=== PATIENT | male | born 1990 | race Two or more races ===

== ENCOUNTER 2018-07-25 00:09 | Emergency (ER) | payer OTHER ==
--- NOTE | 2018-07-25 00:21 | ER Report ---
History and Physical Time Seen By MD: 00:21 Hx. of Stated Complaint: patient states that he has had a fever for the past couple hours; patient also states around 2100 he started having chills even when dressed; patient states that before he started feeling ill he was at the gym HPI/ROS CHIEF COMPLAINT: fever, chills HISTORY OF PRESENT ILLNESS: This is a 27 year old male. He has had some fevers and chills tonight. Some stomach pain off and on for months now, and did have some tonight. Has had reflux in the past. Mild nausea, no vomiting. Had some difficulty breathing earlier tonight, but feels better now. Has history of some anxiety as well. No cough. No sore throat or runny nose. No diarrhea. No trouble with urination. Allergies: Coded Allergies: No Known Drug Allergies (Unverified , 07/25/18) Home Meds No Active Prescriptions or Reported Meds Reviewed Nurses Notes: Yes Hx Substance Use Disorder: No Constitutional Vital Sign - Last 24 Hours 07/25/18 07/25/18 07/25/18 07/25/18 00:11 00:13 00:30 01:02 Temp 97.8 Pulse 110 Resp 17 B/P (MAP) 132/96 (108) 132/96 122/97 (105) 124/87 (99) Pulse Ox 94 O2 Delivery Room Air 07/25/18 07/25/18 07/25/18 01:09 01:30 01:39 Pulse 101 109 B/P (MAP) 128/83 (98) Pulse Ox 93 93 Physical Exam General Appearance: The patient is alert. No acute distress. Eyes: Pupils are equal, round. No pallor, injection or icterus. ENT: Mucous membranes are moist. Normal oral mucosa. Posterior oropharynx is normal. Normal tympanic membranes and canals. Neck: Supple and non tender. No lymphadenopathy. Respiratory: Lungs are clear to auscultation. Cardiovascular: Regular rate and rhythm. No murmurs, gallops or rubs. Normal capillary refill. Gastrointestinal: Abdomen is soft and non tender. Nondistended. Normal active bowel sounds. Neurological: Alert and oriented x3. Skin: Warm and dry. No rashes. Musculoskeletal: Extremities are nontender. DIFFERENTIAL DIAGNOSIS: After history and physical exam, differential diagnosis was considered for a patient with fever and chills, some stomach upset that sounds like reflux. Medical Decision Making Data Points Result Diagram: 07/25/184907/25/1849 Laboratory Hematology Test 07/25/18 00:22 07/25/18 00:43 07/25/18 00:50 Influenza Virus Type A (PCR) Negative (NEGATIVE) Influenza Virus Type B (PCR) Negative (NEGATIVE) Urine Color Straw Urine Clarity Clear Urine pH 5.0 pH (4.8-9.5) Urine Specific [place] 1.009 Urine Protein Negative mg/dL (NEGATIVE) Urine Glucose (UA) Negative mg/dL (NEGATIVE) Urine Ketones Negative mg/dL (NEGATIVE) Urine Blood Moderate (NEGATIVE) Urine Nitrite Negative (NEGATIVE) Urine Bilirubin Negative (NEGATIVE) Urine Urobilinogen Negative mg/dL (0.2-1.9) Urine Leukocyte Esterase Negative (NEGATIVE) Urine RBC 2 /HPF (0-2/HPF) Urine WBC <1 /HPF (0-5/HPF) Urine Squamous Epithelial Cells None /LPF (</=FEW) Urine Bacteria Negative /HPF (NONE-FEW) Urine Mucus None /HPF (NONE-FEW) Red Blood Count 6.23 M/uL (4.00-5.60) Mean Corpuscular Volume 84.5 fL (80.0-96.0) Mean Corpuscular Hemoglobin 28.9 pg (26.0-33.0) Mean Corpuscular Hemoglobin Concent 34.2 g/dL (32.0-36.0) Red Cell Distribution Width 12.7 % (11.5-14.5) Mean Platelet Volume 8.3 fL (7.2-11.1) Neutrophils (%) (Auto) 78.1 % (39.4-72.5) Lymphocytes (%) (Auto) 9.9 % (17.6-49.6) Monocytes (%) (Auto) 10.9 % (4.1-12.4) Eosinophils (%) (Auto) 0.6 % (0.4-6.7) Basophils (%) (Auto) 0.5 % (0.3-1.4) Nucleated RBC Relative Count (auto) 0.2 /100WBC Neutrophils # (Auto) 7.3 K/uL (2.0-7.4) Lymphocytes # (Auto) 0.9 K/uL (1.3-3.6) Monocytes # (Auto) 1.0 K/uL (0.3-1.0) Eosinophils # (Auto) 0.1 K/uL (0.0-0.5) Basophils # (Auto) 0.0 K/uL (0.0-0.1) Nucleated RBC Absolute Count (auto) 0.01 K/uL Sodium Level 136 mmol/L (137-145) Potassium Level 3.5 mmol/L (3.5-5.0) Chloride Level 99 mmol/L (98-107) Carbon Dioxide Level 26 mmol/L (22-30) Blood Urea Nitrogen 15 mg/dl (9-21) Creatinine 0.90 mg/dl (0.66-1.25) Glomerular Filtration Rate Calc > 60.0 Random Glucose 114 mg/dl (75-110) Calcium Level 9.9 mg/dl (8.4-10.2) Total Bilirubin 0.6 mg/dl (0.2-1.3) Aspartate Amino Transf (AST/SGOT) 20 U/L (0-35) Alanine Aminotransferase (ALT/SGPT) 23 U/L (0-56) Alkaline Phosphatase 70 U/L (0-126) Total Protein 7.8 g/dl (6.3-8.2) Albumin 4.6 g/dl (3.5-5.0) Chemistry Test 07/25/18 00:22 07/25/18 00:43 07/25/18 00:50 Influenza Virus Type A (PCR) Negative (NEGATIVE) Influenza Virus Type B (PCR) Negative (NEGATIVE) Urine Color Straw Urine Clarity Clear Urine pH 5.0 pH (4.8-9.5) Urine Specific [place] 1.009 Urine Protein Negative mg/dL (NEGATIVE) Urine Glucose (UA) Negative mg/dL (NEGATIVE) Urine Ketones Negative mg/dL (NEGATIVE) Urine Blood Moderate (NEGATIVE) Urine Nitrite Negative (NEGATIVE) Urine Bilirubin Negative (NEGATIVE) Urine Urobilinogen Negative mg/dL (0.2-1.9) Urine Leukocyte Esterase Negative (NEGATIVE) Urine RBC 2 /HPF (0-2/HPF) Urine WBC <1 /HPF (0-5/HPF) Urine Squamous Epithelial Cells None /LPF (</=FEW) Urine Bacteria Negative /HPF (NONE-FEW) Urine Mucus None /HPF (NONE-FEW) White Blood Count 9.3 k/uL (4.5-11.0) Red Blood Count 6.23 M/uL (4.00-5.60) Hemoglobin 18.0 g/dL (14.0-18.0) Hematocrit 52.7 % (42.0-52.0) Mean Corpuscular Volume 84.5 fL (80.0-96.0) Mean Corpuscular Hemoglobin 28.9 pg (26.0-33.0) Mean Corpuscular Hemoglobin Concent 34.2 g/dL (32.0-36.0) Red Cell Distribution Width 12.7 % (11.5-14.5) Platelet Count 245 K/uL (150-450) Mean Platelet Volume 8.3 fL (7.2-11.1) Neutrophils (%) (Auto) 78.1 % (39.4-72.5) Lymphocytes (%) (Auto) 9.9 % (17.6-49.6) Monocytes (%) (Auto) 10.9 % (4.1-12.4) Eosinophils (%) (Auto) 0.6 % (0.4-6.7) Basophils (%) (Auto) 0.5 % (0.3-1.4) Nucleated RBC Relative Count (auto) 0.2 /100WBC Neutrophils # (Auto) 7.3 K/uL (2.0-7.4) Lymphocytes # (Auto) 0.9 K/uL (1.3-3.6) Monocytes # (Auto) 1.0 K/uL (0.3-1.0) Eosinophils # (Auto) 0.1 K/uL (0.0-0.5) Basophils # (Auto) 0.0 K/uL (0.0-0.1) Nucleated RBC Absolute Count (auto) 0.01 K/uL Glomerular Filtration Rate Calc > 60.0 Calcium Level 9.9 mg/dl (8.4-10.2) Total Bilirubin 0.6 mg/dl (0.2-1.3) Aspartate Amino Transf (AST/SGOT) 20 U/L (0-35) Alanine Aminotransferase (ALT/SGPT) 23 U/L (0-56) Alkaline Phosphatase 70 U/L (0-126) Total Protein 7.8 g/dl (6.3-8.2) Albumin 4.6 g/dl (3.5-5.0) Urinalysis Test 07/25/18 00:43 Urine Color Straw Urine Clarity Clear Urine pH 5.0 pH (4.8-9.5) Urine Specific [place] 1.009 Urine Protein Negative mg/dL (NEGATIVE) Urine Glucose (UA) Negative mg/dL (NEGATIVE) Urine Ketones Negative mg/dL (NEGATIVE) Urine Blood Moderate (NEGATIVE) Urine Nitrite Negative (NEGATIVE) Urine Bilirubin Negative (NEGATIVE) Urine Urobilinogen Negative mg/dL (0.2-1.9) Urine Leukocyte Esterase Negative (NEGATIVE) Urine RBC 2 /HPF (0-2/HPF) Urine WBC <1 /HPF (0-5/HPF) Urine Squamous Epithelial Cells None /LPF (</=FEW) Urine Bacteria Negative /HPF (NONE-FEW) Urine Mucus None /HPF (NONE-FEW) EKG/Imaging Imaging CHEST: Indication: Dyspnea and fever. Technique: Frontal and lateral views were obtained. Comparison: None available. Skeletal and soft tissue structures: Intact and unremarkable. Heart and mediastinum: Within normal limits. Lung [place]: Well-expanded and clear. No focal consolidation or volume loss. Pleural spaces: Unremarkable. Impression: No acute process. Report Dictated By: Dinesh Madrigal MD at 07/25/2018 1:39 AM ED Course/Re-evaluation ED Course Labs unremarkable. Reviewed with the patient that the fevers and chills likely due to virus, but could be response to GERD symptoms as well. See instructions below. Decision to Disposition Date: Jul 25, 2018 Decision to Disposition Time: 01:45 Depart Departure Latest Vital Signs Vital Signs Date Time Temp Pulse Resp B/P (MAP) Pulse Ox O2 Delivery O2 Flow Rate FiO2 07/25/18 01:39 109 93 07/25/18 01:30 128/83 (98) 07/25/18 00:13 97.8 17 Room Air Impression: Primary Impression: Upper respiratory infection Additional Impression: Acid reflux Condition: Improved Disposition: HOME OR SELF-CARE New Scripts No Active Prescriptions or Reported Meds Patient Instructions: Gastroesophageal Reflux Disease (ED) Additional Instructions: Your fever and chills tonight may have been caused by the stomach problem/stomach acid, or it could be due to a viral infection. If it is a viral infection, you may have repeated fevers or chills for several days. You can take over the counter Tylenol (Acetaminophen) or Ibuprofen for this. For the stomach acid, try taking Zantac or Pepcid. These are both over the counter medications. You can also try taking Tums, Rolaids, or Maalox for stomach acid problems. If these are not effective, you can try a stronger medicine like Omeprazole (Prilosec), Lansoprazole (Prevacid), Nexium for this. Problem Qualifiers Primary Impression: Upper respiratory infection URI type: unspecified viral URI Qualified Codes: J06.9 - Acute upper respiratory infection, unspecified Additional Impression: Acid reflux Esophagitis presence: esophagitis presence not specified Qualified Codes: K21.9 - Gastro-esophageal reflux disease without esophagitis CARO JACQUES MD Jul 25, 2018 00:21
[2018-07-25 01:12] LABS: PLATELET COUNT, AUTOMATED 245 K/uL (150-450)
[2018-07-25] MEDS ORDERED: MAG HYD/AL HYD/SIMETH 30ML UDC PO ONE (01:25)
[2018-07-25 01:30] VITALS: BP 128/83
--- NOTE | 2018-07-25 01:44 | RADIOLOGY IMAGING REPORT ---
FACILITY: [facility] - [place] PATIENT NAME: Pasha George : 1990 MR: [id number] V: [id number] EXAM DATE: ORDERING PHYSICIAN: CARO JACQUES TECHNOLOGIST: Location: [facility] [place] Patient: Pasha George : 1990 Visit/Account:[id number] Date of Sevice: 07/25/2018 CHEST: Indication: Dyspnea and fever. Technique: Frontal and lateral views were obtained. Comparison: None available. Skeletal and soft tissue structures: Intact and unremarkable. Heart and mediastinum: Within normal limits. Lung [place]: Well-expanded and clear. No focal consolidation or volume loss. Pleural spaces: Unremarkable. Impression: No acute process. Report Dictated By: Dinesh Madrigal MD at 07/25/2018 1:39 AM Report E-Signed By: Dinesh Madrigal MD at 07/25/2018 1:40 AM WSN:[id number]
== END 2018-07-25 01:55 | disposition home or self-care (01) ==
LOC: ER 00:24
DX: J06.9 Acute upper respiratory infection, unspecified (principal); K21.9 Gastro-esophageal reflux disease without esophagitis
CPT/HCPCS: 36415; 71046; 81001; 82040; 82247; 82310; 82374; 82435; 82565; 82947; 84075; 84132; 84155; 84295; 84450; 84460; 84520; 85025; 87502; 99283